=== PATIENT | male | born 1970 | race Caucasian/White ===

== ENCOUNTER 2021-02-06 09:29 | Day surgery (SDC) | payer MEDICAID, SELFPAY ==
[2021-01-31 08:38] VITALS: BMI 23.9
--- NOTE | 2021-02-05 09:30 | HO.ANESPROP2 ---
Documented by User: Selin Buckley NP 02/05/21 09:30 HPI - Anesthesia Eval Consult details Narrative: 50yo M for Colonoscopy [facility] Past Medical History Medical History (Updated 02/06/21 @ 10:21 by Karla Adams MD) Arthritis Back pain COVID-19 vaccine series completed Erectile dysfunction HTN (hypertension) Hyperlipidemia Surgical History Surgical History (Updated 01/31/21 @ 08:30 by Cristy Davis RN) Hx of hand surgery Social History Social History Are you a primary special needs child caregiver to a significant other at home: No Do you presently have visiting nurse or other home services: No Patient Tobacco Use Status: Current everyday Tobacco user Tobacco use type: Cigarette Cigarette Packs Per Day: 0.25 Cigarettes Per Day: 5.0 Years Smoked: 30+ Smoked in Last 30 Days: Yes Patient Interested in Nicotine Replacement: No Patient Given Instructions on How to Stop Smoking: Yes Date Education Initiated: 01/31/21 Use of substances other than those prescribed or required for medical reasons: Yes Substance Use Frequency: Weekly Have you been hit, kicked, punched, or otherwise hurt by someone within the past year? If so, by whom?: No Are you DNR?: No Advance Directives: No Advance Directives Information Provided: No Advance Directives on File: No Recently lost weight without trying: No Eating poorly because of decreased appetite: No Nutrition Risks: No Nutritional Risk Meds Allergies Allergy/AdvReac Type Severity Reaction Status Date / Time No Known Allergies Allergy Unverified 01/31/21 08:30 Home Medications Medication Instructions Recorded Confirmed Last Taken Type atorvastatin 20 mg tablet 20 mg PO DAILY 01/31/21 01/31/21 Unknown History Exam Exam Date and Time: February 05, 2021 0930 Height,Weight and Vital Signs: Height 5 ft 5 in Weight 65.317 kg Assessment and Plan Assessment Anesthesia Assessment: Chart Reviewed Documented by User: Karla Adams MD 02/06/21 10:23 [facility] Past Medical History Medical History (Updated 02/06/21 @ 10:21 by Karla Adams MD) Arthritis Back pain COVID-19 vaccine series completed Erectile dysfunction HTN (hypertension) Hyperlipidemia Family History Family history of problems with anesthesia: No Surgical History Surgical History (Updated 01/31/21 @ 08:30 by Cristy Davis RN) Hx of hand surgery History of Problems with Anesthesia: No Social History Social History Are you a primary special needs child caregiver to a significant other at home: No Do you presently have visiting nurse or other home services: No Patient Tobacco Use Status: Current everyday Tobacco user Tobacco use type: Cigarette Cigarette Packs Per Day: 0.25 Cigarettes Per Day: 5.0 Years Smoked: 30+ Smoked in Last 30 Days: Yes Patient Interested in Nicotine Replacement: No Patient Given Instructions on How to Stop Smoking: Yes Date Education Initiated: 01/31/21 Use of substances other than those prescribed or required for medical reasons: Yes Substance Use Frequency: Weekly Have you been hit, kicked, punched, or otherwise hurt by someone within the past year? If so, by whom?: No Are you DNR?: No Advance Directives: No Advance Directives Information Provided: No Advance Directives on File: No Recently lost weight without trying: No Eating poorly because of decreased appetite: No Nutrition Risks: No Nutritional Risk Meds Allergies Allergy/AdvReac Type Severity Reaction Status Date / Time No Known Allergies Allergy Unverified 01/31/21 08:30 Home Medications Medication Instructions Recorded Confirmed Last Taken Type atorvastatin 20 mg tablet 20 mg PO DAILY 01/31/21 01/31/21 Unknown History Exam Height,Weight and Vital Signs: Height 5 ft 5 in Weight 65.317 kg Vital Signs Temp Pulse Resp BP Pulse Ox 02/06/21 09:37 97.5 F 64 16 144/107 H 94 Airway Mallampati Class: II TM Dist: >3cm Neck ROM: Full Loose/Missing/Broken Teeth: Yes (Extractions) Heart: RRR Lungs: CTAB Assessment and Plan Assessment Anesthesia Assessment: Anesthesia Plan Discussed Final Anesthetic Review Family History of Problems with Anesthesia: No History of Problems with Anesthesia: No NPO: No (Sips if water. Last at 8:30am) ASA Class: II Final Preanesthetic Review: No Changes in Pt Med Stat, Meds/Allgs Chart Reviewed, Consent Obtained/Reviewed and Anes Risks/Benef Reviewed Patient Risk: Low Procedure Risk: Low Assessment/Block/Sedation in SS: Assess/Block/Sedation-SS Anesthetic Plan Anesthetic Plan: MAC: Disposition: Standard PACU
[2021-02-06 09:37] VITALS: BP 144/107; PULSE 64; RESP 16; TEMP 36.4; O2SAT 94
[2021-02-06] MEDS: Lactated Ringers 1,000 ML 100 ML IVCONT (10:06)
--- NOTE | 2021-02-06 10:37 | MHC.SHP ---
Pre-Procedural Eval Section A Date of Service: 02/06/21 The patient is an INPATIENT: No Changes since office visit: No Cold of Flu in the past 2 weeks, No New Medical Problems, No Changes in Medication and No Patient answered all questions The History & Physical has been completed within 30 days and I have reviewed it.: Yes Section B Chief Complaint: screening Allergies: Allergies Allergy/AdvReac Type Severity Reaction Status Date / Time No Known Allergies Allergy Unverified 01/31/21 08:30 Plan I have reviewed the history and physical and performed a pertinent physical examination on my patient. No changes have occurred unless specified.
[2021-02-06 11:10] VITALS: BP 114/63; PULSE 84; RESP 16; TEMP 36.1; O2SAT 96
--- NOTE | 2021-02-06 11:21 | P.BOP_ITS ---
Brief Operative Note Date of Service: 02/06/21 Pre-op diagnosis: rectal pain,screening Post-op diagnosis: same (colon polyp) Procedure: colonoscopy Surgeon: Jameson Christian Anesthesia: MAC Was an Keypunch Operator used for this Procedure?: No Estimated blood loss (mL): 2 Pathology: other (polyps x 2 ) Condition: stable Disposition: PACU
[2021-02-06 11:25] VITALS: BP 113/62; PULSE 84; RESP 16; TEMP 36.1; O2SAT 99
--- NOTE | 2021-02-06 11:34 | OP_ITS ---
SURGEON: Jameson Christian MD INDICATIONS: Rectal pain and colon cancer screening. PREOPERATIVE DIAGNOSIS: POSTOPERATIVE DIAGNOSIS: PROCEDURE PERFORMED: Colonoscopy to the terminal ileum with biopsy, snare polypectomy, and cauterization of colon polyp. ESTIMATED BLOOD LOSS: COMPLICATIONS: ANESTHESIA: ASSISTANTS: SPECIMENS: MEDICATIONS: Monitored anesthesia care. DESCRIPTION OF PROCEDURE: History and physical performed. The risks and benefits of the procedure were explained to the patient. Informed consent was obtained. The patient was placed in the left lateral decubitus position. A digital rectal exam was performed and was found to be normal. There were no external or palpable internal abnormalities. The Olympus pediatric video colonoscope was introduced into the rectum and advanced to the cecum without difficulty. The cecum was identified by transillumination, palpation, and identification of ileocecal valve. Examination was performed and the scope was removed. He tolerated the procedure well and was taken to recovery area in stable condition. FINDINGS: The terminal ileum was normal. The visualized colonic mucosa was normal. In the right colon at about 80 cm, was a less than 5 mm sessile polyp, which was removed with biopsy forceps. At the hepatic flexure, was an approximately 8 mm polyp, which was removed with a snare. The base was cauterized. No other polyps were identified. There was some stool coating the mucosa limiting the sensitivity examination for detection of small polyps. This was washed and suctioned as best possible. Retroflexed examination showed hypertrophic anal papilla and no significant abnormalities. IMPRESSION: Colon polyps. RECOMMENDATION: Follow up the biopsy results. MD CHERIE Huffman/MODL / [id number]
== END 2021-02-06 12:05 | disposition home or self-care (01) ==
PROVIDERS: Visit Provider Internal Medicine Gastroenterology
PROC: 0DJD8ZZ Inspection of Lower Intestinal Tract, Via Natural or Artificial Opening Endoscopic (ICD-10-PCS; CPT 45378; principal; 2021-02-06 10:40)
DX: Z12.11 Encounter for screening for malignant neoplasm of colon (principal); K62.89 Other specified diseases of anus and rectum; D12.3 Benign neoplasm of transverse colon; D12.4 Benign neoplasm of descending colon; I10 Essential (primary) hypertension; E78.5 Hyperlipidemia, unspecified; N52.9 Male erectile dysfunction, unspecified; Z79.899 Other long term (current) drug therapy; F17.210 Nicotine dependence, cigarettes, uncomplicated
CPT/HCPCS: 45385; 45380; 88305